=== PATIENT | male | born 1950 | race Caucasian/White ===

== ENCOUNTER → 2017-10-20 | Day surgery (SDC) | payer OTHER ==
[2017-10-19 08:34] LABS: BASOPHILS % 0.5 % (0.0-1.0); EOSINOPHILS # (AUTO) 0.2 (0.0-0.4); EOSINOPHILS % 2.4 % (0.0-6.0); HEMATOCRIT 44.2 % (38.2-49.6); HEMOGLOBIN 15.6 g/dL (14.0-18.0); LYMPHOCYTES # (AUTO) 2.5 (1.0-3.2); LYMPHOCYTES % 32.6 % (18.0-39.1); MEAN CORPUSCULAR HEMOGLOBIN 32.6 pg (28-32); MEAN CORPUSCULAR HGB CONC 35.3 g/dL (31-35); MEAN CORPUSCULAR VOLUME 92.3 fL (81-99); MONOCYTES # (AUTO) 0.8 (0.2-0.8); MONOCYTES % 10.2 % (4.4-11.3); NEUTROPHILS # (AUTO) 4.2 (2.1-6.9); PLATELET COUNT 259 x10e3/uL (140-360); RED BLOOD COUNT 4.79 x10e6/uL (4.3-5.7); RED CELL DISTRIBUTION WIDTH 12.3 % (11.7-14.4)
--- NOTE | 2017-10-19 10:27 | Diagnostic Imaging Report ---
PROCEDURE: X-RAY CHEST, TWO VIEWS COMPARISON: None. INDICATIONS: PREOPERATIVE CHEST XRAY FOR KNEE SURGERY FINDINGS: Lungs are well-inflated and without focal consolidation, pleural effusion, or pneumothorax. Relative increased lucency in the lung apices suggestive of emphysematous changes. No acute osseous abnormality. Atherosclerotic calcification of the aortic arch with an otherwise normal cardiomediastinal contour. CONCLUSION: No acute cardiopulmonary abnormality. Biapical emphysematous changes. Dictated by: Paul Redd M.D. on 10/19/2017 at 10:35 Electronically approved by: Paul Redd M.D. on 10/19/2017 at 10:35
[~2017-10-20] MED LIST: BUPIVACAINE HCL 0.5% INJ 30 ML VIAL INJ ONE; CLINDAMYCIN PHOS 900MG/ D5W 50 50 ML IV ONE; DEXAMETHASONE SOD PHOS INJ 4 MG/ML VIAL ONE; EPHEDRINE SULFATE INJ 50 MG/10 ML SYR ONE; FENTANYL CITRATE/PF 100MCG/2 ML INJ ONE; KETOROLAC TROMETHAMINE 30 MG/ML VIAL ONE; LIDOCAINE HCL 2% LOCAL INJ 5 ML SDV VIAL INJ ONE; MIDAZOLAM HCL 2 MG/2 ML VIAL ONE; ONDANSETRON HCL INJ 2 MG/ML VIAL ONE; PROPOFOL IV EMULSION 10 MG/ML 20 ML VIAL ONE; SEVOFLURANE INHAL SOLN 250 ML PEN BTL ONE
--- NOTE | 2017-10-20 16:30 | Operative Report ---
DATE OF PROCEDURE: October 20, 2017 PREOPERATIVE DIAGNOSES 1. Left knee medial meniscus tear. 2. Left knee degenerative joint disease of the knee. POSTOPERATIVE DIAGNOSES 1. Left knee medial meniscus tear. 2. Left knee degenerative joint disease of the knee. PROCEDURES PERFORMED 1. Left knee examination under anesthesia. 2. Left knee arthroscopy. 3. Left knee partial medial meniscectomy. 4. Left knee chondroplasties of the patella, trochlea, medial femoral condyle, medial tibial plateau, lateral femoral condyle and lateral tibial plateau. FITNESS COORDINATOR: None. ANESTHESIA: General endotracheal intubation anesthesia. IV FLUIDS: Per the anesthesia record. DESCRIPTION OF PROCEDURE: Mr. Graves was taken to the operating room and placed in the supine position on the operating table. Following the induction of general anesthesia as well as endotracheal intubation, the patient's left lower extremity was examined under anesthesia. He was found to have a mild effusion within the knee joint but an otherwise ligamentously stable knee. The patient's lower extremity was prepped and draped in the standard surgical fashion. A 2-portal technique was used to provide this patient arthroscopic evaluation of the knee joint. Examination of the suprapatellar pouch, medial and lateral gutters found no evidence of loose bodies. There was, however, evidence of chondromalacia of the patellar and trochlear surfaces. The scope was advanced to the medial compartment. Examination of the medial compartment demonstrated a torn medial meniscus. There was also chondromalacia of the articulating surfaces. A combination of biting forceps and a motorized shaver was used to resect the torn portion of the meniscus. Chondroplasties of the medial femoral condyle and medial tibial plateau were performed at this time. The scope was advanced to the intracondylar notch. The anterior cruciate ligament was identified and found to be intact. The scope was advanced to the lateral compartment. There was chondromalacia of the articulating surfaces. Chondroplasties of the lateral femoral condyle and lateral tibial plateau were performed at this time. The scope was then advanced into the suprapatellar pouch, and chondroplasties of the patella and trochlea were performed. The knee was deflated of its sterile normal saline. Each of the portal sites was closed using 4-0 nylon suture. The portal sites as well as the knee itself were injected with 0.5% Marcaine with epinephrine. Sterile dressings were applied. The patient was then awakened and taken to the postanesthesia care unit in stable condition. Job#: [id number] MH
== END | disposition home or self-care (01) ==
LOC: OR 06:51
PROVIDERS: ATTEND Specialist
DX: S83.232A Complex tear of medial meniscus, current injury, left knee, initial encounter (principal); M17.12 Unilateral primary osteoarthritis, left knee; M22.42 Chondromalacia patellae, left knee; I49.3 Ventricular premature depolarization; X58.XXXA Exposure to other specified factors, initial encounter; Z01.810 Encounter for preprocedural cardiovascular examination; Z01.812 Encounter for preprocedural laboratory examination; Z01.818 Encounter for other preprocedural examination; Z68.30 Body mass index [BMI] 30.0-30.9, adult
CPT/HCPCS: 29881; 36415; 71020; 85025; 93005; J1100; J1885; J2001; J2250; J2405

== ENCOUNTER 2020-05-08 08:55 | Emergency (ER) | payer MEDICARE, BC ==
[~2020-05-08] VITALS: Ht 167.6 cm; Wt 85.7 kg
--- NOTE | 2020-05-08 09:15 | Emergency Department Note ---
History of Present Illnes History of Present Illness Chief Complaint: COVID PUI History of Present Illness This is a 70 year old male C CC NAUSEA VOMITING , POSSIBLE COVID EXPOSURE. Onset (how long ago): day(s) (3) Location: ABD Quality: VOMITING Radiation: Denies non-radiation, Denies back, Denies neck, Denies extremity, Denies abdomen, Denies periumbilical, Denies flank, Denies proximal, Denies distal, Denies other Severity: mild Onset quality: gradual Duration (how long): day(s) (3) Timing of current episode: intermittent Progression: improving Chronicity: new Context: Denies recent illness, Denies recent surgery, Denies recent immobilization, Denies recent travel, Denies trauma/injury, Denies new medications, Denies hx of DVT/PE, Denies non-compliance w/ medications, Denies other Relieving factors: none Exacerbating factors: none Associated symptoms: Reports nausea/vomiting; Denies denies other symptoms, Denies confusion, Denies chest pain, Denies cough, Denies diaphoresis, Denies fever/chills, Denies headaches, Denies loss of appetite, Denies malaise, Denies rash, Denies seizure, Denies shortness of breath, Denies syncope, Denies weakness, Denies other Treatments prior to arrival: none Past Medical/Family History Physician Review I have reviewed the patient's past medical and family history. Any updates have been documented here. Past Medical History Past Medical History: None Past Surgical History: None Social History Smoking Cessation: Former smoker Physically hurt or threatened: No Family History Family history of heart diseas: No Review of Systems Review of Systems Constitutional: Reports no symptoms EENTM: Reports no symptoms Cardiovascular: Reports no symptoms Respiratory: Reports no symptoms Gastrointestinal: Reports as per HPI Genitourinary: Reports no symptoms Musculoskeletal: Reports no symptoms Integumentary: Reports no symptoms Neurological: Reports no symptoms Psychological: Reports no symptoms Endocrine: Reports no symptoms Hematological/Lymphatic: Reports no symptoms Physical Exam Related Data Allergies: Coded Allergies: Penicillins (Verified Allergy, Unknown, RASH, 10/19/17) Vital signs reviewed: Yes Physical Exam CONSTITUTIONAL Constitutional: Present well-developed, Present well-nourished HENT HENT: Present normocephalic, Present atraumatic, Present oropharynx clear/moist, Present nose normal HENT L/R: Present left ext ear normal, Present right ext ear normal EYES Eyes: Reports PERRL, Reports conjunctivae normal NECK Neck: Present ROM normal PULMONARY Pulmonary: Present effort normal, Present breath sounds normal CARDIOVASCULAR Cardiovascular: Present regular rhythm, Present heart sounds normal, Present capillary refill normal, Present normal rate GASTROINTESTINAL Abdominal: Present soft, Present nontender, Present bowel sounds normal GENITOURINARY Genitourinary: Present exam deferred SKIN Skin: Present warm, Present dry MUSCULOSKELETAL Musculoskeletal: Present ROM normal NEUROLOGICAL Neurological: Present alert, Present oriented x 3, Present no gross motor or sensory deficits PSYCHOLOGICAL Psychological: Present mood/affect normal, Present judgement normal Assessment & Plan Medical Decision Making MDM GASTRITIS GASTROENTERITIS Reassessment Reassessment BETTER Assessment & Plan Final Impression: (1) Vomiting (2) Exposure to COVID-19 virus Depart Disposition: HOME, SELF-detention Meds No Active Prescriptions or Reported Meds JOSEY DENIS MD May 08, 2020 09:15
[2020-05-08] MEDS ORDERED: ZOFRAN4 MG PO (09:16)
--- OUTSIDE RECORDS SUMMARY | 2020-05-10 19:23 | XMS REPORT | Continuity of Care Document ---
Author Author [facility] t Organization [facility] Address [address] [place] [address] Phone Unavailable Care Team Providers Care Machining Engineer Name Role Phone GREGG GOMES PCP TL LEA Unavailable Payers Payer Name Policy Type Policy Number Effective Date Expiration Date S [employer] Ppo [id number] 2019 00:00:00 [facility] Medicare A & B [id number] 2012 00:00:00 [facility] Problems Condition Name Condition Details Condition Category Status Onset Date Resolution Date Last Treatment Date Treating Clinician Comments Source Vomiting Problem Active [facility] Exposure to severe acute respiratory syndrome coronavirus 2 (SARS-CoV-2) Problem Active [facility] Allergies, Adverse Reactions, Alerts Allergy Name Allergy Type Status Severity Reaction(s) Onset Date Inacti ve Date Treating Clinician Comments Source Penicillin Allergy to substance Active RASH 2017-10-19 00:00:00 [facility] Social History Social Habit Start Date Stop Date Quantity Comments Source Sex Assigned At 1950 00:00:00 1950 00:[birth year]:00 Male [facility] Medications Ordered Medication Name Filled Medication Name Start Date Stop Da te Current Medication? Ordering Clinician Indication Dosage Frequency Signature (SIG) Comments Components Source Ondansetron Hcl (Zofran*) 4 Mg TABLET Ondansetron Hcl (Zofran*) 4 M g TABLET Yes 4 Every 6 Hours as needed for Nausea And V omiting [facility] Vital Signs Vital Name Observation Time Observation Value Comments Source Weight 2020-05-08 08:57:00 189 [lb_av] [facility] BMI (Body Mass Index) 2020-05-08 08:57:00 30.5 kg/m2 [facility] Procedures This patient has no known procedures. Plan of Care Planned Activity Planned Date Details Comments Source Instructions Vomiting - Adult [facility] Encounters Start Date/Time End Date/Time Encounter Type Admission Type Attendi [facility] Care Department Encounter ID Source 2020-05-08 09:12:00 2020-05-08 09:19:00 Departed Emergency Room [facility] [id number] [facility] Results Test Description Test Time Test Comments Results Result Comments Source CHEST 2 VIEWS [facility] [address] [address] Patient Name: WHIT AGUILAR MR #: [id number] : 1950 Age/Sex: 67/M Req #: [id number] Adm Physician: Ordered by: TL LEA MD Report #: [id number] Location: OR Room/Bed: Procedure: [id number] DX/CHEST 2 VIEWS Exam Date: 10/19/17 Exam Time: 0955 REPORT STATUS: Signed PROCEDURE: X-RAY CHEST, TWO VIEWS COMPARISON: None. INDICATIONS: PREOPERATIVE CHEST XRAY FOR KNEE SURGERY FINDINGS: Lungs are well- inflated and without focal consolidation, pleural effusion, or pneumothorax. Relative increased lucency in the lung apices suggestive of emphysematous changes. No acute osseous abnormality. Atherosclerotic calcification of the aortic arch with an otherwise normal cardiomediastinal contour. CONCLUSION: No acute cardiopulmonary abnormality. Biapical emphysematous changes. Dictated by: Diego Knox M.D. on 10/19/2017 at 10:35 Electronically approved by: Diego Knox M.D. on 10/19/2017 at 10:35 Dictated By: DIEGO KNOX MD 103 Transcribed By: MALINI on 10/19/17 1035 COPY TO: TL LEA MD MRI KNEE LEFT WO [place] [address] Patient Name: WHIT AGUILAR MR #: [id number] : 1950 Age/Sex: 67/M Req #: [id number] Adm Physician: Ordered by: TL LEA MD Report #: [id number] Location: MRI Room/Bed: Procedure: [id number] MRI/MRI KNEE LEFT WO Exam Date: 09/27/17 Exam Time: 09 REPORT STATUS: Signed Left knee MRI without contrast. History: May pain. Medial meniscus tear. Pain not responding to conservative management. Decreased range of motion. Comparison: None. Technique: Multiplanar multi-sequence MRI of the knee without contrast. Findings: Medial compartment: There is a complex tear involving the posterior horn and body segments of the medial meniscus. There is articular cartilage fraying and fissuring at the peripheral aspect of the medial tibial plateau with underlying bone marrow edema. The medial collateral ligament complex is intact. Lateral compartment: No meniscal tear or cartilage abnormality. The LCL complex is normal. Intercondylar notch: The ACL and PCL are intact. Patellofemoral compartment: There is mild articular cartilage fraying and fissuring in the patellofemoral compartment. Extensor mechanism: The quadriceps and patellar tendons are normal. Other findings: There is a joint effusion and synovitis. There is no acute fracture, subluxation or avascular necrosis. Varicose veins are seen in the popliteal region. There is a small Almonte's cyst. IMPRESSION: Complex medial meniscus tear with mild degenerative arthrosis in the medial compartment of the knee. There is mild bone marrow edema at the peripheral aspect of the medial tibial plateau. Signed by: Dr. Darin Yu M.D. on 09/27/2017 10:10 AM Dictated By: DARIN YU MD, MD 1010 Transcribed By: QUE on 09/27/17 1010 COPY TO: TL LEA MD
== END 2020-05-08 09:19 | disposition home or self-care (01) ==
LOC: FSED 09:12
DX: R11.2 Nausea with vomiting, unspecified (principal); R10.9 Unspecified abdominal pain; Z03.818 Encounter for observation for suspected exposure to other biological agents ruled out
CPT/HCPCS: 99282

== ENCOUNTER 2020-05-16 09:19 | Emergency (ER) | payer MEDICARE, BC ==
[~2020-05-16] VITALS: Ht 167.6 cm; Wt 85.7 kg
[~2020-05-16 09:19] MED LIST changes: -BUPIVACAINE HCL 0.5% INJ 30 ML VIAL INJ ONE; -CLINDAMYCIN PHOS 900MG/ D5W 50 50 ML IV ONE; -DEXAMETHASONE SOD PHOS INJ 4 MG/ML VIAL ONE; -EPHEDRINE SULFATE INJ 50 MG/10 ML SYR ONE; -FENTANYL CITRATE/PF 100MCG/2 ML INJ ONE; -KETOROLAC TROMETHAMINE 30 MG/ML VIAL ONE; -LIDOCAINE HCL 2% LOCAL INJ 5 ML SDV VIAL INJ ONE; -MIDAZOLAM HCL 2 MG/2 ML VIAL ONE; -ONDANSETRON HCL INJ 2 MG/ML VIAL ONE; -PROPOFOL IV EMULSION 10 MG/ML 20 ML VIAL ONE; -SEVOFLURANE INHAL SOLN 250 ML PEN BTL ONE; +ZOFRAN4 MG PO
--- NOTE | 2020-05-16 09:43 | Emergency Department Note ---
History of Present Illnes History of Present Illness Chief Complaint: COVID PUI History of Present Illness This is a 70 year old male . Historian: Patient Arrival Mode: Car Timing of current episode: constant Progression: unchanged Chronicity: new Past Medical/Family History Physician Review I have reviewed the patient's past medical and family history. Any updates have been documented here. Past Medical History Recent Fever: No Clinical Suspicion of Infectio: No New/Unexplained Change in Ment: No Past Medical History: None Past Surgical History: None Review of Systems Review of Systems Constitutional: Reports no symptoms EENTM: Reports no symptoms Cardiovascular: Reports as per HPI, Reports chest pain Respiratory: Reports no symptoms Gastrointestinal: Reports no symptoms Genitourinary: Reports no symptoms Musculoskeletal: Reports no symptoms Integumentary: Reports no symptoms Neurological: Reports no symptoms Psychological: Reports no symptoms Endocrine: Reports no symptoms Hematological/Lymphatic: Reports no symptoms Review of other systems: All other systems negative Physical Exam Related Data Allergies: Coded Allergies: Penicillins (Verified Allergy, Unknown, RASH, 10/19/17) Triage Vital Signs Vital Signs Date Time Temp Pulse Resp B/P (MAP) Pulse Ox O2 Delivery O2 Flow Rate FiO2 05/16/20 09:25 97.5 81 19 136/ 97 Room Air Vital signs reviewed: Yes Physical Exam CONSTITUTIONAL Constitutional: Present well-developed, Present well-nourished HENT HENT: Present normocephalic, Present atraumatic, Present oropharynx clear/moist, Present nose normal HENT L/R: Present left ext ear normal, Present right ext ear normal EYES Eyes: Reports PERRL, Reports conjunctivae normal NECK Neck: Present ROM normal PULMONARY Pulmonary: Present effort normal, Present breath sounds normal CARDIOVASCULAR Cardiovascular: Present regular rhythm, Present heart sounds normal, Present capillary refill normal, Present normal rate GASTROINTESTINAL Abdominal: Present soft, Present nontender, Present bowel sounds normal GENITOURINARY Genitourinary: Present exam deferred SKIN Skin: Present warm, Present dry MUSCULOSKELETAL Musculoskeletal: Present ROM normal NEUROLOGICAL Neurological: Present alert, Present oriented x 3, Present no gross motor or sensory deficits PSYCHOLOGICAL Psychological: Present mood/affect normal, Present judgement normal Results Laboratory Lab results reviewed: Yes Imaging Imaging results reviewed: Yes Impressions IMPRESSION: Patchy airspace opacities identified bilaterally with a lower lung zone predominance which can be seen in the setting of a multifocal/viral infectious process. Procedures 12 Lead ECG Interpretation ECG Interpretation : ECG: ECG 1 Senior Chemical Engineer: Interpreted by ED physician Prior ECG tracings: reviewed Rhythm: sinus rhythm Rate: normal QRS axis: normal ST segments normal: Yes T waves normal: Yes Clinical Impression: normal ECG Assessment & Plan Medical Decision Making MDM 70-year-old male that arrives to the ED with complaints of cough fever exposure to Covid 19. Patient clinically positive for the coronavirus. Chest x-ray does show possible bilateral infiltrates, however, patient reports feeling well with no evidence tachypnea or hypoxia noted. Patient wished to be discharged home, outpatient pulmonary follow-up given. Patient hemodynamically stable and well-appearing at time of discharge. Patient's oxygen saturation remained 99% even on exertion, no evidence of tachypnea or dyspnea noted in the ED. Spoke present length about the importance of sleeping on his stomach and rotating from side to side. Z-Carloz given, signs and symptoms for return discussed. Pt understands he is at high risk of morbidity and mortality given his age and co-morbidiites. Pt understands he is welcome to return to the ED at anytime for worsening symptoms. Assessment & Plan Final Impression: (1) Exposure to COVID-19 virus (2) Vomiting Depart Disposition: HOME, SELF-CARE Last Vital Signs Date Time Temp Pulse Resp B/P (MAP) Pulse Ox O2 Delivery O2 Flow Rate FiO2 05/16/20 09:25 97.5 81 19 136/ 97 Room Air Home Meds Active Scripts Azithromycin (Z-CARLOZ) 250 Mg Tablet, 1 PKG PO DIRECTED, #1 PKG 0 Refills Prov:LILLIAN RUSHING DO 05/16/20 Reported Medications Ondansetron Hcl* (ZOFRAN*) 4 Mg Tablet, 4 MG PO Q6H PRN for NAUSEA AND VOMITING, #10 05/08/20 LILLIAN RUSHING DO May 16, 2020 09:43
--- OUTSIDE RECORDS SUMMARY | 2020-05-16 10:12 | XMS REPORT | Continuity of Care Document ---
Author Author [facility] t Organization [facility] Address [address] [place] [address] Phone Unavailable Care Team Providers Care Bankruptcy Legal Assistant Name Role Phone GREGG GOMES PCP TL LEA Unavailable Payers Payer Name Policy Type Policy Number Effective Date Expiration Date [facility] [id number] 2019 00:00:00 [facility] Medicare A & B [id number] 2012 00:00:00 [facility] Problems Condition Name Condition Details Condition Category Status Onset Date Resolution Date Last Treatment Date Treating Clinician Comments Source Vomiting Problem Active [facility] Exposure to severe acute respiratory syndrome coronavirus 2 (SARS-CoV-2) Problem Active [facility] Allergies, Adverse Reactions, Alerts Allergy Name Allergy Type Status Severity Reaction(s) Onset Date Inacti ve Date Treating Clinician Comments Source Penicillin Allergy to substance Active RASH 2017-10-19 00:00:00 [facility] Social History Social Habit Start Date Stop Date Quantity Comments Source Sex Assigned At 1950 00:00:00 1950 00[birth year]:00 Male [facility] Medications Ordered Medication Name Filled Medication Name Start Date Stop Da te Current Medication? Ordering Clinician Indication Dosage Frequency Signature (SIG) Comments Components Source Ondansetron Hcl (Zofran*) 4 Mg TABLET Ondansetron Hcl (Zofran*) 4 M g TABLET Yes 4 Every 6 Hours as needed for Nausea And V omiting [facility] Vital Signs Vital Name Observation Time Observation Value Comments Source Weight 2020-05-08 08:57:00 189 [lb_av] [facility] BMI (Body Mass Index) 2020-05-08 08:57:00 30.5 kg/m2 [facility] Procedures This patient has no known procedures. Plan of Care Planned Activity Planned Date Details Comments Source Instructions Vomiting - Adult [facility] Encounters Start Date/Time End Date/Time Encounter Type Admission Type Attendi [facility] Facility Care Department Encounter ID Source 2020-05-08 09:12:00 2020-05-08 09:19:00 Departed Emergency Room [facility] [id number] [facility] Results Test Description Test Time Test Comments Results Result Comments Source CHEST [address] [facility] [address] [address] Patient Name: WHIT AGUILAR MR #: [id number] : 1950 Age/Sex: 67/M Req #: [id number] Adm Physician: Ordered by: TL LEA MD Report #: [id number] Location: OR Room/Bed: Procedure: [id number] DX/CHEST 2 VIEWS Exam Date: 10/19/17 Exam Time: 09 REPORT STATUS: Signed PROCEDURE: X-RAY CHEST, TWO [...] TL LEA MD MRI KNEE LEFT WO [address] [address] Patient Name: WHIT AGUILAR MR #: [id number] : 1950 Age/Sex: 67/M Req #: [id number] Adm Physician: Ordered by: TL LEA MD Report #: [id number] Location: MRI Room/Bed: Procedure: [id number] MRI/MRI KNEE LEFT WO Exam Date: 09/27/17 Exam Time: 0925 REPORT STATUS: Signed Left knee MRI without [...]
[2020-05-16 10:37] LABS: BASOPHILS % 0.4 % (0.0-1.0); EOSINOPHILS # (AUTO) 0.1 (0.0-0.4); EOSINOPHILS % 1.1 % (0.0-6.0); HEMATOCRIT 42.9 % (38.2-49.6); HEMOGLOBIN 14.6 g/dL (14.0-18.0); LYMPHOCYTES # (AUTO) 1.4 (1.0-3.2); MEAN CORPUSCULAR VOLUME 94.1 fL (81-99); MONOCYTES # (AUTO) 0.5 (0.2-0.8); MONOCYTES % 6.2 % (4.4-11.3); NEUTROPHILS # (AUTO) 5.8 (2.1-6.9); NEUTROPHILS % 73.5 % (38.7-80.0); PLATELET COUNT 498 x10e3/uL (140-360); RED BLOOD COUNT 4.56 x10e6/uL (4.3-5.7); RED CELL DISTRIBUTION WIDTH 12.6 % (11.7-14.4)
--- NOTE | 2020-05-16 10:53 | Diagnostic Imaging Report ---
EXAM: CHEST SINGLE (PORTABLE) DATE: 05/16/2020 10:16 AM INDICATION: Chest pain COMPARISON: None FINDINGS: The trachea is midline. There are patchy airspace opacities present bilaterally with a lower lung zone predominance. There is no evidence for lobar consolidation, pneumothorax, or significant pleural effusion. The cardiomediastinal silhouette is within normal limits. No acute osseous abnormality is identified. The surrounding soft tissues are unremarkable. IMPRESSION: Patchy airspace opacities identified bilaterally with a lower lung zone predominance which can be seen in the setting of a multifocal/viral infectious process. Signed by: Dr. Elder Aleman MD on 05/16/2020 10:49 AM
[2020-05-16 11:03] LABS: ALANINE AMINOTRANSFERASE 22 IU/L (0-55); ALBUMIN 3.3 g/dL (3.5-5.0); ALBUMIN/GLOBULIN RATIO 0.8 (0.8-2.0); ALKALINE PHOSPHATASE 65 IU/L (40-150); BLOOD UREA NITROGEN 17 mg/dL (7-26); BUN/CREATININE RATIO 20 (6-25); CARBON DIOXIDE 25 mmol/L (22-29); CHLORIDE 105 mmol/L (98-107); CREATINE KINASE 81 IU/L (30-200); CREATININE, SERUM 0.86 mg/dL (0.72-1.25); EST GLOMERULAR FILTRATION RATE > 60 ML/MIN (60-); GLUCOSE 112 mg/dL (74-118); SODIUM 143 mmol/L (136-145)
[2020-05-16] MEDS ORDERED: AZITHROMYCIN250 MG PO (12:02)
[2020-05-16 12:04] VITALS: BP 107/74
== END 2020-05-16 12:35 | disposition home or self-care (01) ==
LOC: ER 10:10
DX: Z20.828 Contact with and (suspected) exposure to other viral communicable diseases (principal); R11.10 Vomiting, unspecified
CPT/HCPCS: 36415; 71045; 80053; 82550; 82553; 84484; 85025; 93005; 99284

== ENCOUNTER 2022-08-15 13:09 | Emergency (ER) | payer MEDICARE, BC, OTHER ==
[~2022-08-15] VITALS: Ht 12.7 cm; Wt 2.3 kg
[~2022-08-15 13:09] MED LIST changes: +AZITHROMYCIN250 MG PO
[2022-08-15] MEDS ORDERED: ACETAMINOPHEN 325 MG TAB PO ONE (13:45)
[2022-08-15] MEDS ORDERED: ACETAMINOPHEN 325 MG TAB ONE (14:10)
[2022-08-15] MEDS ORDERED: ACETAMINOPHEN-1 EAC4 PO (14:46)
[2022-08-15] MEDS ORDERED: ONDANSETRON ODT4 MG PO (14:46)
== END 2022-08-15 15:05 | disposition home or self-care (01) ==
LOC: FSED 13:51
DX: S52.122A Displaced fracture of head of left radius, initial encounter for closed fracture (principal); W11.XXXA Fall on and from ladder, initial encounter; Y92.89 Other specified places as the place of occurrence of the external cause
CPT/HCPCS: 99283